=== PATIENT | female | born 1980 | race Caucasian/White ===

== ENCOUNTER 2017-09-09 20:18 | Emergency (ER) | payer OTHER ==
[~2017-09-09] VITALS: Ht 154.9 cm; Wt 76.8 kg
[2017-09-09 21:09] LABS: HEMATOCRIT 34.9 % (36.0-46.0); MCH 30.7 PG (29.0-34.0); MCHC 34.1 G/DL (30.0-36.0); MCV 89.9 FL (83-99); MEAN PLAT.VOLUME 8.8 uM^3 (9.5-12.4); PLATELET COUNT 439 K/uL (156-360); RBC DIS.WIDTH-CV 13.2 % (11.8-14.6); RBC DIS.WIDTH-SD 43.5 % (39-53); RED BLOOD COUNT 3.88 M/uL (3.80-5.20); WHITE BLOOD COUNT 10.6 K/uL (4.1-10.2)
[2017-09-09 21:20] LABS: CHLORIDE 107 mEq/L (99-109); POTASSIUM 3.8 mEq/L (3.7-5.4); SODIUM 139 mEq/L (136-147)
[2017-09-09] MEDS ORDERED: NORMODYNE,TRAN200 MG PO (21:20)
[2017-09-09 21:23] LABS: GLUCOSE 97 mg/dL (70-99)
[2017-09-09 21:24] LABS: ANION GAP 9 MEQ/L (2-14)
[2017-09-09 21:25] LABS: TOTAL BILIRUBIN 0.4 mg/dL (0.0-1.0)
[2017-09-09 21:26] LABS: ALKALINE PHOSPHATASE 89 IU/L (3-129); GFR ESTIMATE (CALCULATED) > 59 mL/min/
[2017-09-09 21:27] LABS: UREA NITROGEN (BUN) 11 mg/dL (9-23)
[2017-09-09 21:36] LABS: QUANTITATIVE HCG 3020.7 MIU/ML
[2017-09-09 23:05] LABS: ADD MIUA? YES; BILIRUBIN NEGATIVE; BLOOD MODERATE; COLOR STRAW ((YELLOW)); GLUCOSE (STRIP) NEGATIVE; KETONES NEGATIVE; LEUKOCYTES NEGATIVE; NITRITE NEGATIVE; PROTEIN (STRIP) NEGATIVE; SPECIFIC GRAVITY 1.006 (1.000-1.030); UROBILINOGEN 0.2 MG/DL (0.2-1.0)
[2017-09-09 23:14] LABS: BACTERIA NONE SEEN /HPF; EPITHELIAL CELLS NONE SEEN /HPF; MUCUS TRACE /LPF; RED BLOOD CELLS 0-5 /HPF (0-5); WHITE BLOOD CELLS 0-5 /HPF (0-5)
[2017-09-09 23:21] VITALS: BP 144/88
== END 2017-09-09 23:23 | disposition home or self-care (01) ==
LOC: EME 20:18
PROVIDERS: Physician Assistant
DX: O20.0 Threatened abortion (principal); Z3A.12 12 weeks gestation of pregnancy; O10.911 Unspecified pre-existing hypertension complicating pregnancy, first trimester; O99.331 Smoking (tobacco) complicating pregnancy, first trimester; F17.200 Nicotine dependence, unspecified, uncomplicated
CPT/HCPCS: 76801; 80053; 81003; 84702; 85027; 86900; 86901; 99281; 99284

== ENCOUNTER 2018-03-06 05:42 | Day surgery (SDC) | payer OTHER ==
[~2018-03-06] VITALS: Ht 154.9 cm; Wt 70.3 kg
[~2018-03-06 05:42] MED LIST: DIOVAN HCT 11 TABLET PO; NORMODYNE,TRAN200 MG PO
[2018-03-06 06:31] VITALS: BP 112/67
[2018-03-06] MEDS ORDERED: IBUPROFEN800 MG PO (08:25)
[2018-03-06] MEDS ORDERED: ENDOCET 5-3251 EACH PO (08:25)
[2018-03-06 08:45] VITALS: BP 121/64
[2018-03-06 09:45] VITALS: BP 119/57
== END 2018-03-06 09:50 | disposition home or self-care (01) ==
LOC: SDC 05:42
PROC: 0HB9XZZ Excision of Perineum Skin, External Approach (ICD-10-PCS; principal; 2018-03-06)
DX: A63.0 Anogenital (venereal) warts (principal)
CPT/HCPCS: 88305; J0131; J1100; J1885; J2405; J3010